=== PATIENT | male | born 1995 | race Caucasian/White ===

== ENCOUNTER → 2021-12-29 | Outpatient (CLI) | payer BC ==
--- NOTE | 2021-12-29 09:55 | Diagnostic Imaging Report ---
Exam: CT left ankle without contrast. Date: December 29, 2021. Indication: 26-year-old male, left ankle pain and swelling. Comparison: None. Findings: There are small probable benign bone islands involving the distal fibula and calcaneus. There is close apposition of the anterior process of the calcaneus with the navicular consistent with a fibrocartilaginous coalition. This is best demonstrated on sagittal image 27 and adjacent sequential images. There is anterior talar beaking. There is no identified acute fracture. The joint spaces appear well-preserved. There is no identified tibiotalar joint effusion. There is a small posterior subtalar joint effusion. There is sinus tarsi somewhat small in volume. There is preservation of at least some fat attenuation within the sinus tarsi. Impression: 1. 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 2. Small posterior subtalar joint effusion. 3. Well-preserved joint spaces. 4. No acute osseous abnormality. Dictated by: Dictated on workstation # [id number]
== END ==
LOC: RAD 08:09
PROVIDERS: ATTEND Orthopaedic Surgery
DX: M25.572 Pain in left ankle and joints of left foot (principal); M25.472 Effusion, left ankle
CPT/HCPCS: 73700